=== PATIENT | male | born 1930 | race Caucasian/White ===

== ENCOUNTER → 2020-01-31 | Outpatient (CLI) | payer MEDICARE, OTHER ==
--- NOTE | 2020-01-31 14:30 | RADIOLOGY REPORT (SQ) ---
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 TECHNIQUE: Noncontrast axial scanning through the pelvis. Includes lower abdomen through the proxim al thighs. Multiplanar reconstructions with multi window review to include bone and soft tissue wind ows. LIMITATIONS: None. FINDINGS: Lower abdominal soft tissues: Dense aortic calcification without aneurysm. Diverticulosis without active diverticulitis. Region of the kidneys not included in the field of view. No visuali zed ascites or abnormal gas. Pelvic soft tissues: Prostate looks minimally nodular and slightly enlarged. Bladder free of masses or stones. No pelvic free fluid, bulky adenopathy or inguinal adenopathy or hernia. Bones: No fracture or bone lesion. Lower lumbar spondylosis including disc and facet disease. IMPRESSION: 1. Generally unremarkable CT of the pelvis. No acute or suspicious findings. TECHNICAL DOCUMENTATION: JOB ID: [id number] 2010 [employer]- All Rights Reserved Reading location - IP/workstation name: [email or web address]
--- NOTE | 2020-01-31 14:33 | RADIOLOGY REPORT (SQ) ---
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 RADIONUCLIDE AND DOSE: 21.6 millicuries Tc99m MDP. The route of agent administration: Intravenous. ADDITIONAL DRUGS AND DOSES: None. TECHNIQUE: Routine delayed images at 3 hour post radionuclide injection acquired of the bony skeleto n including anterior and posterior whole-body projections and additional focused images as needed. LIMITATIONS: None. FINDINGS: BONES: Mild increased uptake in both shoulders consistent with degenerative disease. No e vidence of metastatic disease. KIDNEYS: Symmetric excretion without obstruction. OTHER: No other significant finding. IMPRESSION: No evidence of metastatic disease. COMMENT: Quality measure 147: Current bone scan is compared with any available plain radiographs, p rior bone scans, and CT/MRI. TECHNICAL DOCUMENTATION: JOB ID: [id number] 2010 [employer]- All Rights Reserved Reading location - IP/workstation name: [email or web address]
== END ==
LOC: RAD 10:02
PROVIDERS: ATTEND Urology
DX: C61 Malignant neoplasm of prostate (principal); D49.519 Neoplasm of unspecified behavior of unspecified kidney; N32.0 Bladder-neck obstruction; M89.9 Disorder of bone, unspecified
CPT/HCPCS: 78306; 72192; A9503; Q9969